=== PATIENT | female | born 1985 | race Caucasian/White ===

== ENCOUNTER 2020-12-05 14:48 | Emergency (ER) | payer OTHER ==
[~2020-12-05] VITALS: Ht 152.4 cm; Wt 63.0 kg
[2020-12-05] MEDS ORDERED: PHENTERMINE HCL30 MG PO (15:00)
[2020-12-05 15:23] LABS: ABSOLUTE BASOPHILS 0.1 thou/uL (0.0-0.2); ABSOLUTE EOSINOPHILS 0.1 thou/uL (0.0-0.7); ABSOLUTE LYMPHOCYTES 1.5 thou/uL (0.8-5.3); ABSOLUTE MONOCYTES 1.1 thou/uL (0.0-1.2); ABSOLUTE NEUTROPHILS 13.2 thou/uL (1.6-8.1); BASOPHILS 0.4 %; EOSINOPHILS 0.4 %; HEMOGLOBIN 13.6 gm/dL (12.0-15.0); LYMPHOCYTES 9.6 %; MCH 31.1 pg (26.0-34.0); MCHC 33.9 g/dL (28.0-37.0); MCV 91.6 fL (80.0-100.0); MONOCYTES 6.7 %; MPV 7.3 fl. (7.2-11.1); NUCLEATED RBCS 0 /100WBC; PLATELET COUNT* 283 thou/uL (150-400); POLYS 82.9 %; RBC 4.37 mil/uL (4.20-5.00); RDW-CV 12.2 % (10.5-14.5); WBC 15.9 thou/uL (4.0-11.0)
[2020-12-05 15:33] LABS: CALCIUM 9.2 mg/dL (8.5-10.1); CREATININE 0.9 mg/dL (0.6-1.3)
[2020-12-05 15:37] LABS: ALBUMIN 3.2 g/dL (3.4-5.0); TOTAL BILIRUBIN 0.4 mg/dL (<0.1-1.0); TOTAL PROTEIN 7.2 g/dL (6.4-8.2)
[2020-12-05 16:17] LABS: AMP/METHAMP POSITIVE (Negative); BARBITURATES Negative (Negative); BENZODIAZEPINES Negative (Negative); COCAINE Negative (Negative); METHADONE Negative (Negative); OPIATES Negative (Negative); PCP Negative (Negative); THC Negative (Negative)
[2020-12-05 16:32] LABS: URINE BLOOD NEGATIVE (Negative); URINE CLARITY CLEAR; URINE COLOR YELLOW; URINE GLUCOSE-RANDOM NEGATIVE (Negative); URINE KETONES TRACE (Negative); URINE LEUKOCYTES-REFLEX NEGATIVE (Negative); URINE NITRITE-REFLEX NEGATIVE (Negative); URINE PROTEIN 1+ (Negative); URINE SPECIFIC GRAVITY >= 1.030 (1.005-1.030)
[2020-12-05 16:33] LABS: ICTOTEST (BILI CONFIRMATORY) Negative (Negative); URINE BILIRUBIN 1+ (Negative)
[2020-12-05] MEDS ORDERED: ZOFRAN ODT4 MG DISSOLVE (16:46)
[2020-12-05] MEDS ORDERED: BENTYL 10 MG CA10 MG PO (16:46)
[2020-12-05] MEDS ORDERED: MAGNESIUM CITR296 ML PO (16:46)
[2020-12-05 16:57] VITALS: BP 107/65
--- NOTE | 2020-12-06 13:58 | EKG ---
[place] [address] ELECTROCARDIOGRAM REPORT Name: RASHAD FARRELL Room: [facility]#: [id number] Admission: 12/05/20 Attend Phys: Discharge: 12/05/20 Date of : 83 Date of Service: 12/05/20 1515 Report #: [id number] THIS REPORT FOR: //name// [facility] ED Test Date: 2020-12-05 Test Time: 15:15:36 Pat Name: RASHAD FARRELL Department: Room: Gender: [employer] Service Representative: : 1985 Requested By: Jose A Alexandre Order Number: [id number] MD: Eris Shepherd Measurements Intervals Arnold Rate: 92 P: 45 MT: 197 QRS: -8 QRSD: 126 T: 33 QT: 360 QTc: 446 Interpretive Statements Sinus rhythm Borderline prolonged MT interval Probable left ventricular hypertrophy Anterior Q waves, possibly due to LVH Baseline wander in lead(s) V6 No previous ECG available for comparison Electronically Signed On 12-06-2020 13:58:11 SPECIMEN PROCESSOR by Eris Shepherd [email or web address] <ELECTRONICALLY SIGNED> By: Eris Shepherd MD, [facility] 12/06/20 1358 1515 1515 Eris Shepherd MD, [facility] /EPI
== END 2020-12-05 16:58 | disposition home or self-care (01) ==
LOC: M.ERS 14:48
PROVIDERS: Emergency Medicine Emergency Medical Services
DX: R10.84 Generalized abdominal pain (principal)